=== PATIENT | female | born 1945 | race Caucasian/White ===

== ENCOUNTER 2018-09-27 11:06 | Day surgery (SDC) | payer MEDICARE, OTHER ==
[~2018-09-27] VITALS: Ht 154.9 cm; Wt 81.0 kg
[~2018-09-27 11:06] MED LIST: ALBU90OI INH; AMLO10 PO; ASPI81CH PO; CHOL10002; DOCU100 PO; EXEN5PENI; FISH1000; LOSHYD100 PO; METF500 PO; MULVITMIND PO; OXYACE5T PO; OXYB5 PO; TRULICITY1.5 MG/0.5; Zocor20 MG PO
--- NOTE | 2018-09-27 15:16 | NUR ---
09/27/18 1516 Arlet Pryor 9ML'S NACL USED FOR POLYP REMOVAL.
--- NOTE | 2018-09-27 15:27 | NUR ---
09/27/18 [address] BRAR NOTIFIED OF PT.'S ELEVATED BP 222/88, 197/85 & THAT PT. HAD VERBALIZED NOT TAKING HER BP MEDS TODAY. NO ORDERS RECEIVED AT THIS TIME.
== END 2018-09-27 13:10 | disposition home or self-care (01) ==
LOC: ORSCSDS 11:06
PROVIDERS: Internal Medicine Gastroenterology
PROC: 0DBK8ZX Excision of Ascending Colon, Via Natural or Artificial Opening Endoscopic, Diagnostic (ICD-10-PCS; principal; 2018-09-27 12:30)
PROC: 0DBL8ZX Excision of Transverse Colon, Via Natural or Artificial Opening Endoscopic, Diagnostic (ICD-10-PCS; principal; 2018-09-27 12:30)
PROC: 0DBP8ZX Excision of Rectum, Via Natural or Artificial Opening Endoscopic, Diagnostic (ICD-10-PCS; principal; 2018-09-27 12:30)
PROC: 0DBH8ZX Excision of Cecum, Via Natural or Artificial Opening Endoscopic, Diagnostic (ICD-10-PCS; principal; 2018-09-27 12:30)
DX: Z12.11 Encounter for screening for malignant neoplasm of colon (principal); D12.0 Benign neoplasm of cecum; D12.2 Benign neoplasm of ascending colon; D12.3 Benign neoplasm of transverse colon; K62.1 Rectal polyp; D12.8 Benign neoplasm of rectum; K57.30 Diverticulosis of large intestine without perforation or abscess without bleeding; K64.8 Other hemorrhoids; I10 Essential (primary) hypertension; E11.9 Type 2 diabetes mellitus without complications; E78.5 Hyperlipidemia, unspecified; Z79.899 Other long term (current) drug therapy; Z79.82 Long term (current) use of aspirin
CPT/HCPCS: 82947; 88305; J7120

== ENCOUNTER → 2020-06-05 | Outpatient (CLI) | payer MEDICARE, OTHER ==
[2020-06-07 14:57] LABS: CORONAVIRUS (COVID19) CSH-NRL Negative (Negative)
== END ==
LOC: LAB SHORT 16:00
PROVIDERS: Physician Assistant
DX: Z20.828 Contact with and (suspected) exposure to other viral communicable diseases (principal)
CPT/HCPCS: U0003

== ENCOUNTER → 2021-03-29 | Outpatient (CLI) | payer MEDICARE, OTHER ==
[2021-03-29 12:10] LABS: Protein, Urine Quantitative <5.0 mg/dL (0.0-11.9)
== END | disposition home or self-care (01) ==
LOC: LAB SHORT 09:29 → LAB 09:29
PROVIDERS: Internal Medicine Nephrology
DX: N18.30 Chronic kidney disease, stage 3 unspecified (principal); D63.1 Anemia in chronic kidney disease; N25.81 Secondary hyperparathyroidism of renal origin; E55.9 Vitamin D deficiency, unspecified; E78.00 Pure hypercholesterolemia, unspecified; D50.9 Iron deficiency anemia, unspecified; D51.8 Other vitamin B12 deficiency anemias; D52.8 Other folate deficiency anemias; R76.9 Abnormal immunological finding in serum, unspecified; R94.5 Abnormal results of liver function studies; R94.6 Abnormal results of thyroid function studies
CPT/HCPCS: 81050; 82043; 82570; 84156

== ENCOUNTER 2021-08-28 07:55 | Day surgery (SDC) | payer MEDICARE, OTHER ==
[~2021-08-28] VITALS: Ht 154.9 cm; Wt 86.0 kg
[2021-08-28] MEDS ORDERED: FURO20 PO (08:19)
[2021-08-28] MEDS ORDERED: BASAGLAR K100 UNIT/1 SC (08:19)
[2021-08-28] MEDS ORDERED: CARV3.125 PO (08:19)
[2021-08-28] MEDS ORDERED: OLME20 PO (08:20)
[2021-08-28] MEDS ORDERED: JARDIANCE10 MG PO (08:20)
--- NOTE | 2021-08-28 08:30 | NUR ---
08/28/21 0830 SERENE BASSETT TETRACAINE DROP INSTILLED AT 0819 PLEDGETT INSERTED AT 0821
== END 2021-08-28 10:10 | disposition home or self-care (01) ==
LOC: ORSCSDS 07:55
PROVIDERS: Ophthalmology
PROC: 08RK3JZ Replacement of Left Lens with Synthetic Substitute, Percutaneous Approach (ICD-10-PCS; principal; 2021-08-28 09:00)
DX: H25.12 Age-related nuclear cataract, left eye (principal); E11.36 Type 2 diabetes mellitus with diabetic cataract; Z79.84 Long term (current) use of oral hypoglycemic drugs; Z79.899 Other long term (current) drug therapy; I10 Essential (primary) hypertension; Z79.82 Long term (current) use of aspirin
CPT/HCPCS: 82947; J2001; J2250; J3010; J3301; J7040; V2632

== ENCOUNTER 2023-05-21 08:58 | Day surgery (SDC) | payer MEDICARE ==
[2023-05-21] VITALS (23 sets, daily range): BP systolic 94–177; BP diastolic 47–74
[~2023-05-21] VITALS: Ht 154.9 cm; Wt 88.0 kg
[~2023-05-21 08:58] MED LIST changes: +BASAGLAR K100 UNIT/1 SC; +CARV3.125 PO; +FURO20 PO; +INSULANI SC; +JARDIANCE10 MG PO; +OLME20 PO; +OLMESARTAN-HCT1 EAC3 PO
--- NOTE | 2023-05-21 09:20 | NUR ---
PATIENT REQESTED SHELLFISH AND DETROL TO BE REMOVED FROM ALLERGY LIST. DENIES ALLERGY.
[2023-05-21] MEDS ORDERED: HYDR10 PO (09:24)
--- NOTE | 2023-05-21 10:17 | NUR ---
05/21/23 Tatyana Barrios HISTORY, CHART, MEDICATIONS AND ALLERGIES REVIEWED BEFORE START OF PROCEDURE. PATIENT CONFIRMS NPO STATUS AND AGREES WITH SCHEDULED PROCEDURE. 3-LEAD EKG REVIEWED WITH PHYSICIAN PRIOR TO START OF PROCEDURE. MONITOR INTACT WITH CONTINUOUS PULSE OXIMETRY,CAPNOGRAPHY, 3-LEAD EKG, INTERMITTENT BP. SUPPLEMENTAL O2 TO BE TITRATED THROUGHOUT PROCEDURE TO MAINTAIN O2 SATURATION ABOVE 90%. PATIENT DETERMINED TO BE ASA APPROPRIATE FOR PROPOFOL SEDATION PRIOR TO START OF PROCEDURE BY
--- NOTE | 2023-05-21 11:02 | NUR ---
REPORT RECEIVED FROM NUBIA ROBLEDO. VSS. PT ABLE TO REPOSITION SELF IN BED. PT REQUESTING PO FLUIDS AND TOLERATING THEM WELL. PT DENIES, PAIN, NAUSEA, OR OTHER DISCOMFORTS.
== END 2023-05-21 11:32 | disposition home or self-care (01) ==
LOC: ORSCMMR 08:58 → ORD 10:00 → ORSCMMR 11:32
DX: Z12.11 Encounter for screening for malignant neoplasm of colon (principal); Z86.010 Personal history of colon polyps; D12.0 Benign neoplasm of cecum; D12.2 Benign neoplasm of ascending colon; K63.5 Polyp of colon; E78.00 Pure hypercholesterolemia, unspecified; E11.22 Type 2 diabetes mellitus with diabetic chronic kidney disease; I12.9 Hypertensive chronic kidney disease with stage 1 through stage 4 chronic kidney disease, or unspecified chronic kidney disease; N18.9 Chronic kidney disease, unspecified; Z79.4 Long term (current) use of insulin; Z79.899 Other long term (current) drug therapy
CPT/HCPCS: 82947; 88305; J2250; J2704; J7120

== ENCOUNTER → 2023-10-27 | Outpatient (CLI) | payer MEDICARE ==
[~2023-10-27] MED LIST changes: +HYDR10 PO
[2023-10-28 09:58] LABS: Creatinine Urine 68.1 mg/dL (27.00-270.00); Microalbumin, Urine Quant. 81.3 mg/L (0.000-20.000); Protein, Urine Quantitative 23.2 mg/dL (0.0-11.9)
== END | disposition home or self-care (01) ==
LOC: LAB 23:00 → LAB SHORT 23:00
PROVIDERS: Internal Medicine Nephrology
DX: N18.30 Chronic kidney disease, stage 3 unspecified (principal); D63.1 Anemia in chronic kidney disease; N25.81 Secondary hyperparathyroidism of renal origin; E55.9 Vitamin D deficiency, unspecified; R76.9 Abnormal immunological finding in serum, unspecified; R94.5 Abnormal results of liver function studies; R94.6 Abnormal results of thyroid function studies
CPT/HCPCS: 81050; 82043; 82570; 84156